=== PATIENT | male | born 1995 | race Caucasian/White ===

== ENCOUNTER 2023-06-20 13:59 | Emergency (ER) | payer SELFPAY ==
[2023-06-20 14:15] VITALS: BP 124/63; PULSE 93; RESP 20; TEMP 98; BMI 25.0
[2023-06-20] MEDS ORDERED: LIDOCAINE 4% PATCH TP ONE (15:11)
[2023-06-20] MEDS ORDERED: KETOROLAC TROMETHAMINE 15 MG/ML VIAL ONE (15:11)
[2023-06-20] MEDS: KETOROLAC TROMETHAMINE 15 MG/ML VIAL IM ONE (15:15)
[2023-06-20] MEDS: LIDOCAINE 4% PATCH TP ONE (15:16)
[2023-06-20] MEDS ORDERED: LIDOCAINE PATCH REMOVAL MC SCH (22:00)
== END 2023-06-20 15:41 | disposition home or self-care (01) ==
LOC: JERFT 13:59
PROC: 3E0233Z Introduction of Anti-inflammatory into Muscle, Percutaneous Approach (ICD-10-PCS; principal; 2023-06-20)
DX: M54.50 Low back pain, unspecified (principal)
CPT/HCPCS: 99284-25